=== PATIENT | female | born 1980 | race Caucasian/White ===

== ENCOUNTER 2020-11-05 18:29 | Inpatient (IN) | payer BC ==
[2020-11-05] MEDS ORDERED: Lorazepam 2 MG/ML VIAL ONE (19:03)
[2020-11-05 19:11] LABS: #Eosinphils 0.2 thou/uL (0.0-0.7); #Lymphocytes 2.8 thou/uL (1.20-3.40); #Monocytes 0.4 thou/uL (0.11-0.59); #Neutrophils 5.3 thou/uL (1.40-6.50); %Basophils 0.4 % (0.0-1.0); %Lymphocytes 31.5 % (21.0-51.0); Hemoglobin 13.6 g/dL (12.0-16.0); Mean Corpuscular HGB CONC 33.9 g/dL (32.0-36.0); Mean Corpuscular Hemoglobin 27.7 pg (27.0-31.0); Mean Corpuscular Volume 81.6 fL (78.0-98.0); Mean Platelet Volume 7.9 fL (7.4-10.4); Platelet Count 285 thou/uL (130-400); RBC Distribution Width 11.5 % (11.5-14.5); Red Blood Cell (RBC) Count 4.91 mill/uL (4.20-5.40); White Blood Cell (WBC) Count 8.7 thou/uL (4.8-10.8)
[2020-11-05 19:35] LABS: ALT (SGPT) 31 U/L (8-55); AST (SGOT) 33 U/L (5-34); Albumin 4.3 g/dL (3.5-5.0); Alkaline Phosphatase 88 U/L (40-110); Anion Gap 20 mmol/L (10-20); BUN (Urea Nitrogen) 11 mg/dL (7.0-18.7); Bilirubin, Total 0.4 mg/dL (0.2-1.2); Calc. Creatinine Clearance 0 mL/min (70-130); Carbon Dioxide 20 mmol/L (22-29); Chloride 103 mmol/L (98-107); Globulin 3.9 g/dL (2.4-3.5); Glucose 126 mg/dL (70-105); Protein, Total 8.2 g/dL (6.0-8.3); Sodium 140 mmol/L (136-145)
[2020-11-05 19:37] LABS: Bilirubin Negative (Negative); Blood, Urine Negative (Negative); Clarity Clear (Clear); Glucose, Urine (Dipstick) Normal (Negative); Ketone, Urine 60 mg/dL (Negative); Leukocyte Negative Leu/uL (Negative); Nitrite Negative (Negative); Protein, Urine (Dipstick) 10 mg/dL (Neg-Trace); Specific Gravity, Urine 1.021 (1.002-1.036); Urobilinogen Normal mg/dL (Less than 2)
[2020-11-05 19:45] LABS: Potassium 2.5 mmol/L (3.5-5.1)
[2020-11-05 19:48] LABS: Acetaminophen Less than 6.0 mcg/mL (10.0-30.0); Alcohol Less than 10 mg/dL (Less than 10); CK (CPK) 76 U/L (29-168); Salicylate Less than 8.0 mg/dL (15.0-30.0)
[2020-11-05 19:48] LABS: Amphetamine Not Detected (NotDetected); Barbiturates Screen Not Detected (NotDetected); Benzodiazepine Screen Not Detected (NotDetected); Cocaine Metabolite Screen Not Detected (NotDetected); Medtox Reader # READER 4; Methadone Not Detected (NotDetected); Methamphetamine Not Detected (NotDetected); Opiate Screen Detected (NotDetected); Oxycodone Screen Not Detected (NotDetected); Phencyclidine (PCP) Not Detected (NotDetected); THC/Cannabinoid Screen Not Detected (NotDetected); Tricyclic Screen Not Detected (NotDetected)
[2020-11-05 19:49] LABS: Medtox Control Line Valid? VALID (VALID)
--- NOTE | 2020-11-05 19:49 | RAD ---
PORTABLE CHEST: History: Altered mental status, syncope. FINDINGS: Heart size and mediastinum within normal limits. The lungs are clear of infiltrates. No significant b elfego findings. IMPRESSION: No active intrathoracic disease. POS: OFF
--- NOTE | 2020-11-05 19:54 | CT ---
CT OF BRAIN PERFORMED WITHOUT CONTRAST ENHANCEMENT: History: Patient with altered mental status. Comparison: 05-26-2020, CT angio of the head 05-26-2020, MRI of the brain, 05-27-2020. FINDINGS: The ventricular and cisternal system is within normal limits. There is an area of decreased attenuati on within the left posterior frontal white matter that is new as compared to the previous CT and MR d[facility], although it is fairly well defined and I would tend to favor it may represent more of a chronic change, given the fact that it is not present of the prior study it is difficult to exclude an acute process. There is no hemorrhage or mass effect. Mastoid air cells and visualized sinuses are clear. IMPRESSION: 1. Area of decreased attenuation in the left posterior frontal white matter, new as compared to the [facility] study. I cannot exclude this as an acute or subacute event although this could be older. I would tend to favor it is chronic but the age is indeterminate. Follow up MRI may be the most benefi cial study as previous CT angio is negative. POS: OFF
[2020-11-05] MEDS ORDERED: Potassium Chloride 20 MEQ/100 ML PREMIX BAG ONE (20:01)
[2020-11-05] MEDS ORDERED: Aspirin Chewable 81 MG TAB ONE (20:01)
[2020-11-05] MEDS ORDERED: Potassium Chloride 20 MEQ TAB ONE (20:01)
--- NOTE | 2020-11-05 22:12 | PDOC.HHP ---
Hospitalist HPI - History of Present Illness Altered mental state History of Present Illness: This is a 40-year-old female patient with a history of encephalitis, CVA and Swanson's palsy who presents to the ED on account of altered mental status. Patient was confused at the time of my evaluationmost of the history was taken from her mother and the ED physician signed off. She was apparently in a usual state of health when today while driving from an athletic event of his son started becoming confused. Patient's mother told me that she called her while driving and told her she did not know where she was. Mother asked her to tie puller and eventually she was found. She was brought into the ED for further evaluation. Patient has since had difficulty saying any wordswas unable to say whether she had any pain or any specific symptoms. Mother notes that she has had a previous similar episode about 6 to 8 months ago. She is currently being followed by neurologist Dr. Connors. At presentation her blood pressure was 128/59, pulse 78, respiratory rate 20, temperature 98.5 and saturating 100% on room air. She was confused and not answering questions directly. Mother notes she had fallen from a [employer] building as a child and therefore has been having occasional drop attacks. CBC was generally unremarkable, CMP showed hypokalemia of 2.5 and bicarb of 20. Troponin was 0.01. Sugar was 126. Brain CT scan showed an area of decreased attenuation in the left posterior frontal white matter which is new compared to 4 months ago. Acute or subacute event could not be excluded. Follow-up MRI was recommended. Chest x-ray was negative for any intrathoracic event. She was given potassium, aspirin and Ativan. Hospitalist team consulted for admission Hospitalist ROS - Review of Systems ROS unobtainable: due to mental status Hospitalist History - Past Medical History Other Medical History: Encephalitis, CVA - Past Surgical History Other Surgical History: Orthopedic surgeon on ankle, section - Exam General - other findings: In bed, appears confused not answering questions directly Eye: PERRL, anicteric sclera ENT: normocephalic atraumatic Heart: RRR, no murmur, no gallops Respiratory: CTAB, no wheezes, no rales Gastrointestinal: soft, non-tender, non-distended, normal bowel sounds Extremities: no cyanosis, no clubbing, no edema Neurological - other findings: Stable right facial droop. No focal deficits Psychiatric: A&O x 3, not oriented, flat affect Hospitalist Results - Labs Result Diagrams: 11/06/20 04:10 11/06/20 04:10 Lab results: WBC 8.7 thou/uL (4.8-10.8) 11/05/20 19:02 Hgb 13.6 g/dL (12.0-16.0) 11/05/20 19:02 Hct 40.0 % (36.0-47.0) 11/05/20 19:02 MCV 81.6 fL (78.0-98.0) 11/05/20 19:02 Plt Count 285 thou/uL (130-400) 11/05/20 19:02 Neutrophils % 61.0 % (42.0-75.0) 11/05/20 19:02 Sodium 140 mmol/L (136-145) 11/05/20 19:02 Potassium 2.5 mmol/L (3.5-5.1) L* 11/05/20 19:02 Chloride 103 mmol/L (98-107) 11/05/20 19:02 Carbon Dioxide 20 mmol/L (22-29) L 11/05/20 19:02 BUN 11 mg/dL (7.0-18.7) 11/05/20 19:02 Creatinine 0.76 mg/dL (0.6-1.1) 11/05/20 19:02 Glucose 126 mg/dL (70-105) H 11/05/20 19:02 Calcium 9.0 mg/dL (7.8-10.44) 11/05/20 19:02 Total Bilirubin 0.4 mg/dL (0.2-1.2) 11/05/20 19:02 AST 33 U/L (5-34) 11/05/20 19:02 ALT 31 U/L (8-55) 11/05/20 19:02 Alkaline Phosphatase 88 U/L (40-110) 11/05/20 19:02 Creatine Kinase 76 U/L (29-168) 11/05/20 19:04 Troponin I Less than 0.010 ng/mL (< 0.028) 11/05/20 19:02 Serum Total Protein 8.2 g/dL (6.0-8.3) 11/05/20 19:02 Albumin 4.3 g/dL (3.5-5.0) 11/05/20 19:02 Urine Ketones 60 mg/dL (Negative) A 11/05/20 19:18 Urine Blood Negative (Negative) 11/05/20 19:18 Urine Nitrite Negative (Negative) 11/05/20 19:18 Ur Leukocyte Esterase Negative Joe/uL (Negative) 11/05/20 19:18 Hospitalist H&P A/P - Plan Plan: This is a 40-year-old female patient with a history of enterocolitis and CVA presenting with altered mental status of unclear etiology. Acute encephalopathy Unclear etiologypossible stroke, possible conversion disorder UDS negative, last TSH within normal limits We will check B12 and ammonia Admit to stroke unit and monitor Neuro consult in a.m. Possible subacute/chronic stroke Patient already on aspirin statinwe will continue MRI in a.m Last echocardiogram 5 months ago EF 50 to 55% Normal size of left atrium Consider repeat echo in a.m. Neurochecks Fall precautions. Neuro consulted Hypokalemia Potassium 2.5corrected We will check magnesium monitor BMP VT prophylaxisLovenox CODE STATUSfull code
[2020-11-05] MEDS ORDERED: Potassium Chloride 20 MEQ in Premix Bag 1 BAG IVPB SCH (22:45)
[2020-11-06] MEDS ORDERED: Acetaminophen/Codeine 30-300mg Tablet PO PRN (01:51)
[2020-11-06] MEDS ORDERED: traMADol HCl 50 MG TAB PO PRN (01:51)
[2020-11-06] MEDS ORDERED: Acetaminophen 325 MG TAB ONE ×2 (02:27→11:42)
[2020-11-06] MEDS: Acetaminophen 325 MG TAB PO PRN ×2 (02:34→12:31)
[2020-11-06 04:32] LABS: #Basophils 0.1 thou/uL (0.0-0.2); #Eosinphils 0.1 thou/uL (0.0-0.7); #Lymphocytes 2.4 thou/uL (1.20-3.40); #Monocytes 0.5 thou/uL (0.11-0.59); #Neutrophils 4.7 thou/uL (1.40-6.50); %Basophils 0.7 % (0.0-1.0); %Eosinophils 0.9 % (0.0-10.0); %Lymphocytes 30.6 % (21.0-51.0); %Monocytes 6.3 % (0.0-10.0); %Neutrophils 61.5 % (42.0-75.0); Hemoglobin 11.2 g/dL (12.0-16.0); Mean Corpuscular HGB CONC 33.4 g/dL (32.0-36.0); Mean Corpuscular Hemoglobin 27.5 pg (27.0-31.0); Mean Corpuscular Volume 82.5 fL (78.0-98.0); Platelet Count 237 thou/uL (130-400); RBC Distribution Width 11.4 % (11.5-14.5); Red Blood Cell (RBC) Count 4.06 mill/uL (4.20-5.40); White Blood Cell (WBC) Count 7.7 thou/uL (4.8-10.8)
[2020-11-06 04:54] LABS: Anion Gap 12 mmol/L (10-20); BUN (Urea Nitrogen) 10 mg/dL (7.0-18.7); Calc. Creatinine Clearance 0 mL/min (70-130); Calcium 7.9 mg/dL (7.8-10.44); Carbon Dioxide 24 mmol/L (22-29); Cardiac Risk 2.5 (Less than 4.5); Chloride 106 mmol/L (98-107); Cholesterol 127 mg/dl (< 200 Desired); Glucose 100 mg/dL (70-105); HDL Cholesterol 51 mg/dL (>60 Neg Risk); LDL Cholesterol, Calculated 68 mg/dL; Magnesium 1.9 mg/dL (1.6-2.6); Potassium 3.1 mmol/L (3.5-5.1); Sodium 139 mmol/L (136-145); Triglycerides 42 mg/dL (Less than 150)
[2020-11-06] MEDS ORDERED: FLU VACC QS2020-21(6MOS UP)/PF 60 MCG/0.5 ML SYRINGE IM ONE (06:15)
[2020-11-06] MEDS ORDERED: Ketorolac Tromethamine 30 MG/ML VIAL ONE ×2 (06:59→12:24)
[2020-11-06] MEDS: Ketorolac Tromethamine 30 MG/ML VIAL IVP SCH ×3 (07:41→18:19)
[2020-11-06] MEDS ORDERED: Aspirin Chewable 81 MG TAB ONE (08:45)
[2020-11-06] MEDS: Aspirin 81 mg Enteric Coated Tablet PO SCH (08:50)
[2020-11-06] MEDS ORDERED: Fosphenytoin Sodium 500 mg/10 ml Vial ONE (11:49)
--- NOTE | 2020-11-06 12:11 | PDOC.HOSPP ---
- Subjective Encounter Date: 11/06/20 Subjective: The patient is mental status improved compared to presentation per her mother. She is still have some difficulty speaking. Denies any weakness or numbness. - Objective Vital Signs & Weight: Vital Signs (12 hours) Temp Pulse Resp BP Pulse Ox 11/06/20 05:00 98.3 F 71 17 116/73 98 Weight Weight 182 lb 15.739 oz I&O: 11/05/20 11/06/20 11/07/20 06:59 06:59 06:59 Intake Total 240 Balance 240 Result Diagrams: 11/06/20 04:10 11/06/20 04:10 Hospitalist ROS - Medication Medications: Active Medications Generic Name Dose Route Start Last Admin Trade Name Freq PRN Reason Stop Dose Admin Acetaminophen 650 mg 11/06/20 01:51 11/06/20 02:34 Acetaminophen 325 Mg Tab PO 650 mg Q6H PRN Administration Pain Aspirin 81 mg 11/06/20 09:00 11/06/20 08:50 Aspirin 81 Mg Enteric Coated Tablet PO 81 mg DAILY MIRYAM Administration Ketorolac Tromethamine 15 mg 11/06/20 06:00 11/06/20 07:41 Ketorolac Tromethamine 30 Mg/Ml Vial IVP 11/11/20 06:01 15 mg Q6HR MIRYAM Administration - Exam General Appearance: awake alert ENT: normocephalic atraumatic Neck: supple, no JVD Heart: RRR Respiratory: normal chest expansion, no tachypnea Gastrointestinal: soft Extremities: no cyanosis, no clubbing Hosp A/P (1) Recurrent strokes Code(s): I63.9 - CEREBRAL INFARCTION, UNSPECIFIED Status: Acute (2) MACHINE HEEL BUILDER vasculitis Code(s): I77.6 - ARTERITIS, UNSPECIFIED Status: Acute (3) Seizure disorder Code(s): G40.909 - EPILEPSY, UNSP, NOT INTRACTABLE, WITHOUT STATUS EPILEPTICUS Status: Acute - Plan Patient with recurrent CVA. Prior work-up did not reveal an etiology but vasculitis was in the differential. Continue aspirin and atorvastatin. Check MRI of the brain. Check carotid duplex and echocardiogram. Neurology consultation. Check ANCA screen rheumatic factor.
[2020-11-06 14:50] LABS: SARS-CoV-2 PCR by NAA Not Detected (NotDetected)
--- NOTE | 2020-11-06 16:10 | CON ---
NEUROLOGY CONSULTATION DATE OF CONSULTATION: 11/06/2020 REASON FOR CONSULTATION: Altered mental status. HISTORY OF PRESENT ILLNESS: Ms. Barrios is a 40-year-old female with history significant for encephalitis, CVA, Swanson palsy, presented to the emergency room with altered mental status. History is taken from the patient and also by the mother at the bedside. According to the mother, she was in her usual self until 11/05/2020 when she started becoming confused. The mother called her while driving and she did not know where she was and she was confused, unable to say words right, so mother decided to bring her to the emergency room for further evaluation. The patient is well known to us from previous evaluation. She does have history of epilepsy, and MRI of the brain was abnormal. She was admitted to the hospital on 05/27/2020 and was discharged on 05/30/2020. She was presented with a similar presentation of change in mental status and aphasia. She did undergo stroke workup during that time and the CT of the brain and CTA. CTA showed patent internal carotid artery with no focal stenosis. She head CT, which showed a small infarct in the left parietal, white matter of indeterminate age. She had an echocardiogram which showed ejection fraction of 50% to 55% and no thrombus or PFO. She underwent EEG which showed epileptogenicity in the left parieto-occipital and temporal region. Her MRI of the brain also indicated linear restricted diffusion involving the cortex of the mesial left temporal lobe associated with decreased T2 and FLAIR signal at the basis of edema. Both the tests were consistent with complex partial seizure disorder, so she was started on Keppra. 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 Her condition improved with Keppra and she was discharged home. However, she started having some hallucinations with Keppra including auditory hallucination and suicidal ideation. She was scheduled to see Dr. Bustillos as outpatient. Apparently, the patient stopped Keppra because of the side effects and then she never started a new seizure medication. This admission, she also presented with speech difficulties and altered mental status. REVIEW OF SYSTEMS: Unobtainable due to the patient's mental status. FAMILY History: No history of epilepsy SOCIAL HISTORY: Lives with her mother. Denies smoking, alcohol or illegal drug use. ALLERGIES: Morphine PAST MEDICAL HISTORY: Encephalitis, seizure disorder, possible CVA. PAST SURGICAL HISTORY: Orthopedic surgery on ankle, section. Vital Signs & Weight: Vital Signs (12 hours) Temp Pulse Resp BP Pulse Ox 11/06/20 05:00 98.3 F 71 17 116/73 98 Weight Weight 182 lb 15.739 oz I&O: 11/05/20 11/06/20 11/07/20 06:59 06:59 06:59 Intake Total 240 Balance 240 Active Medications Generic Name Dose Route Start Last Admin Trade Name Frenahed PRN Reason Stop Dose Admin Acetaminophen 650 mg 11/06/20 01:51 11/06/20 02:34 Acetaminophen 325 Mg Tab PO 650 mg Q6H PRN Administration Pain Aspirin 81 mg 11/06/20 09:00 11/06/20 08:50 Aspirin 81 Mg Enteric Coated Tablet PO 81 mg DAILY MIRYAM Administration Ketorolac Tromethamine 15 mg 11/06/20 06:00 11/06/20 07:41 Ketorolac Tromethamine 30 Mg/Ml Vial IVP 11/11/20 06:01 15 mg Q6HR MIRYAM Administration PHYSICAL EXAMINATION: General - confused not answering questions Eye: PERRL, anicteric sclera ENT: normocephalic atraumatic Heart: RRR, no murmur, no gallops Respiratory: CTAB, no wheezes, no rales Gastrointestinal: soft, non-tender, non-distended, normal bowel sounds Extremities: no cyanosis, no clubbing, no edema Neurological - other findings: Stable right facial droop. No focal deficits Psychiatric: A&O x 3, not oriented, flat affect NEUROLOGIC: Mental status, the patient is alert and oriented to herself. She follows commands intermittently. Cranial nerves 2 through 12 intact except 7, upper motor neuron facial palsy, which is chronic. Motor, muscle tone and bulk are normal. Strength, 5/5 bilaterally. Sensory intact. Cerebellar, finger-nose testing intact. Gait deferred due to the patient's safety reason. DATA REVIEWED: I reviewed the labs which were significant for hypokalemia. WBC 8.7 thou/uL (4.8-10.8) 11/05/20 19:02 Hgb 13.6 g/dL (12.0-16.0) 11/05/20 19:02 Hct 40.0 % (36.0-47.0) 11/05/20 19:02 MCV 81.6 fL (78.0-98.0) 11/05/20 19:02 Plt Count 285 thou/uL (130-400) 11/05/20 19:02 Neutrophils % 61.0 % (42.0-75.0) 11/05/20 19:02 Sodium 140 mmol/L (136-145) 11/05/20 19:02 Potassium 2.5 mmol/L (3.5-5.1) L* 11/05/20 19:02 Chloride 103 mmol/L (98-107) 11/05/20 19:02 Carbon Dioxide 20 mmol/L (22-29) L 11/05/20 19:02 BUN 11 mg/dL (7.0-18.7) 11/05/20 19:02 Creatinine 0.76 mg/dL (0.6-1.1) 11/05/20 19:02 Glucose 126 mg/dL (70-105) H 11/05/20 19:02 Calcium 9.0 mg/dL (7.8-10.44) 11/05/20 19:02 Total Bilirubin 0.4 mg/dL (0.2-1.2) 11/05/20 19:02 AST 33 U/L (5-34) 11/05/20 19:02 ALT 31 U/L (8-55) 11/05/20 19:02 Alkaline Phosphatase 88 U/L (40-110) 11/05/20 19:02 Creatine Kinase 76 U/L (29-168) 11/05/20 19:04 Troponin I Less than 0.010 ng/mL (< 0.028) 11/05/20 19:02 Serum Total Protein 8.2 g/dL (6.0-8.3) 11/05/20 19:02 Albumin 4.3 g/dL (3.5-5.0) 11/05/20 19:02 Urine Ketones 60 mg/dL (Negative) A 11/05/20 19:18 Urine Blood Negative (Negative) 11/05/20 19:18 Urine Nitrite Negative (Negative) 11/05/20 19:18 Ur Leukocyte Esterase Negative Joe/uL (Negative) 11/05/20 19:18 ASSESSMENT AND PLAN: (1) Recurrent strokes Code(s): I63.9 - CEREBRAL INFARCTION, UNSPECIFIED Status: Acute (2) 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 Barrios is a 40-year-old female with history significant for Swanson palsy, encephalitis, and seizure disorder, presented with altered mental status and receptive aphasia. This is similar presentation as a previous admission. Both MRI of the brain was positive for seizure focus and an EEG showed partial epilepsy. She was started on Keppra during the last admission, which was discontinued secondary to side effects. We will load her with fosphenytoin 1 gram IV now and then start on 100 mg p.o. t.i.d. The patient and the mother were made aware that she does have epilepsy and she needs to be on seizure medication. Observe seizure precautions. Ativan 2 mg IV for seizure greater than 2 minutes. Neuro checks every 4 hours. PT/OT/Speech. Continue medical management per primary team. Continue aspirin and statin for secondary stroke prevention. Telemetry to rule out arrythmias.Monitor BP and blood glucose. DVT prophylaxis. EEG to rule out underlying cortical irritability and to further adjust the medication. MRI brain followup to assess for acute intracranial process. Consider rheumatology input regarding vasculitis. We will continue to follow. Thank you for the consult. Job ID: [id number] YULIET
[2020-11-06 16:31] VITALS: BMI 28.8
--- NOTE | 2020-11-06 16:40 | MRI ---
EXAM: MRI Brain W WO Con DATE: 11/06/2020 3:45 PM INDICATION: 40-year-old female with history of anxiety, stroke and questionable seizure COMPARISON: CT of the brain without contrast dated November 05, 2020 and an MR the brain with and wit hout contrast dated December 31, 2016. Comparisons are also made with an additional MR the brain dated May 27, 2020. FINDIN cc of MultiHance was utilized for the exam. No area of restricted diffusion is evident. No overt signs acute T2 signal abnormality or region of a bnormal enhancement is demonstrated. Previously on the prior MR examination, there was asymmetric signal abnormalities involving the left mesial temporal lobe that appears less prominent and accentua mago on the current examination. No overt restricted diffusion is noted within this region. No abnormal enhancement is noted within this region. There is a remote subcortical and cortical based in farct involving the left frontal lobe. Mild chronic ischemic change is seen within subcortical white matter of the left frontal lobe. No acute intracranial hemorrhage is evident. No midline shift is noted. No hydrocephalus is evident. There is appropriate flow void seen within the major intracranial vessels. There is mild mucosal thickening within the paranasal sinuses. IMPRESSION: 1. No definite acute intracanal abnormality. 2. Chronic findings as above.
--- NOTE | 2020-11-06 16:53 | PDOC.EEG ---
Neurology EEG Report - Report Report: This EEG was performed using 24 channel [employer] video EEG machine with 24 disc courtney ctrodes. This was an extended 2 hours 6 minutes of inpatient video EEG recording. Digital analysis of the EEG was done for spike and seizure detection which revealed no abnormalities. Background: The posterior background rhythm is not observed. Hyperventilation: Not performed. Photic Stimulation: No significant response. Sleep: No stage change is observed. EEG Diagnosis: Occasional irregular theta activity seen during the reording. Absence of posterior background rhythm. Clinical Interpretation: This EEG is consistent with moderate generalized nonspecific cerebral dysfunction.
--- NOTE | 2020-11-06 18:36 | ULT ---
BILATERAL CAROTID DUPLEX ULTRASOUND: 11/06/20 HISTORY: Stroke symptoms. Real time color Doppler evaluation of the right and left carotid systems was performed. On the right side, peak systolic velocities of the common carotid were 96 cm/s. Internal carotid velocities were 1 06 cm/s. External carotid velocities 93 cm/s. On the left side, peak systolic velocity of the common carotid were 108 cm/s. Internal carotid veloci ties were 92 cm/s. External carotid velocities 82 cm/s. Vertebral flow was antegrade bilaterally. IMPRESSION: No evidence of hemodynamically significant stenosis of either internal carotid artery by NASCET crite deidre. POS: OFF
[2020-11-06] MEDS: Atorvastatin Calcium 40 MG TAB PO SCH (22:05)
[2020-11-07] MEDS: Ketorolac Tromethamine 30 MG/ML VIAL IVP SCH ×2 (01:36→08:34)
[2020-11-07] MEDS: Acetaminophen 325 MG TAB PO PRN ×2 (04:23→10:30)
[2020-11-07] MEDS: Aspirin 81 mg Enteric Coated Tablet PO SCH (08:35)
--- NOTE | 2020-11-07 11:09 | PDOC.HOSPP ---
- Subjective Encounter Date: 11/07/20 Subjective: The patient's symptoms have now resolved. - Objective Vital Signs & Weight: Vital Signs (12 hours) Temp Pulse Resp BP BP Pulse Ox 11/07/20 08:33 98.1 F 85 16 114/61 98 11/07/20 04:15 98.5 F 77 15 110/78 98 11/07/20 01:28 97.6 F 75 12 111/65 98 Weight Weight 178 lb 14.4 oz I&O: 11/06/20 11/07/20 11/08/20 06:59 06:59 06:59 Intake Total 240 1050 Balance 240 1050 Result Diagrams: 11/06/20 04:10 11/06/20 04:10 Hospitalist ROS - Medication Medications: Active Medications Generic Name Dose Route Start Last Admin Trade Name Freq PRN Reason Stop Dose Admin Acetaminophen 650 mg 11/06/20 01:51 11/07/20 10:30 Acetaminophen 325 Mg Tab PO 650 mg Q6H PRN Administration Pain Aspirin 81 mg 11/06/20 09:00 11/07/20 08:35 Aspirin 81 Mg Enteric Coated Tablet PO 81 mg DAILY MIRYAM Administration Atorvastatin Calcium 40 mg 11/06/20 21:00 11/06/20 22:05 Atorvastatin Calcium 40 Mg Tab PO 40 mg HS MIRYAM Administration Phenytoin Sodium 100 mg 11/06/20 15:00 11/07/20 08:35 Phenytoin Sodium Extended 100 Mg Cap PO 100 mg TID MIRYAM Administration - Exam General Appearance: awake alert Neck: supple, no JVD Heart: RRR Respiratory: normal chest expansion, no tachypnea Extremities: no cyanosis, no clubbing Hosp A/P (1) Recurrent strokes Code(s): I63.9 - CEREBRAL INFARCTION, UNSPECIFIED Status: Acute (2) FIRING PIN GAUGER vasculitis Code(s): I77.6 - ARTERITIS, UNSPECIFIED Status: Acute (3) Seizure disorder Code(s): G40.909 - EPILEPSY, UNSP, NOT INTRACTABLE, WITHOUT STATUS EPILEPTICUS Status: Acute - Plan 11/06: Patient with recurrent CVA. Prior work-up did not reveal an etiology but vasculitis was in the differential. Continue aspirin and atorvastatin. Check MRI of the brain. Check carotid duplex and echocardiogram. Neurology consultation. Check ANCA screen rheumatic factor. 11/07: MRI of the brain did not show any acute CVA at this time. Her symptoms could be related to TIA versus seizures. No seizure events captured on EEG at this time. ANCA screen results are pending.
--- NOTE | 2020-11-07 13:54 | PDOC.NEUPN ---
- Subjective Encounter Date: 11/07/20 Subjective: Ms. Barrios altered mental status is resolved and she is back to her baseline. - Objective Vital Signs & Weight: Vital Signs (12 hours) Temp Pulse Pulse Resp BP BP BP 11/07/20 11:33 98.1 F 70 16 11/07/20 10:03 84 105/65 114/61 11/07/20 08:33 98.1 F 85 16 114/61 11/07/20 04:15 98.5 F 77 15 BP Pulse Ox 11/07/20 11:33 125/74 98 11/07/20 10:03 11/07/20 08:33 98 11/07/20 04:15 110/78 98 Weight Weight 178 lb 14.4 oz I&O: 11/06/20 11/07/20 11/08/20 06:59 06:59 06:59 Intake Total 240 1050 Balance 240 1050 Result Diagrams: 11/06/20 04:10 11/06/20 04:10 Radiology Reviewed by me: Yes EKG Reviewed by me: Yes ROS - Review of Systems Constitutional: denies: fever, chills, sweats, weakness, malaise, other Eyes: denies: pain, vision change, conjunctivae inflammation, eyelid inflammatio n, redness, other ENT: denies: ear pain, ear discharge, nose pain, nose discharge, nose congestion, mouth pain, mouth swelling, throat pain, throat swelling, other Respiratory: denies: cough, dry, shortness of breath, hemoptysis, SOB with excertion, pleuritic pain, sputum, wheezing, other Cardiovascular: denies: no pertinent history, AFIB, CAD, CHF, HTN, [place], Syncope, Hyperlipidemia, Mitral valve stenosis, Aortic stenosis, Valve insufficiency, Pulmonary hypertension, Other Gastrointestinal: denies: nausea, vomiting, abdominal pain, diarrhea, constipation, melena, hematochezia, other Genitourinary: denies: dysuria, frequency, incontinence, hematuria, retention, other Musculoskeletal: denies: neck pain, shoulder pain, arm pain, back pain, hand pain, leg pain, foot pain, other Skin: denies: rash, lesions, jose miguel, bruising, other Neurological: denies: weakness, numbness, incoordination, change in speech, confusion, seizures, other - Medication Medications: Active Medications Generic Name Dose Route Start Last Admin Trade Name Steve PRN Reason Stop Dose Admin Acetaminophen 650 mg 11/06/20 01:51 11/07/20 10:30 Acetaminophen 325 Mg Tab PO 650 mg Q6H PRN Administration Pain Aspirin 81 mg 11/06/20 09:00 11/07/20 08:35 Aspirin 81 Mg Enteric Coated Tablet PO 81 mg DAILY MIRYAM Administration Atorvastatin Calcium 40 mg 11/06/20 21:00 11/06/20 22:05 Atorvastatin Calcium 40 Mg Tab PO 40 mg HS MIRYAM Administration Phenytoin Sodium 100 mg 11/06/20 15:00 11/07/20 08:35 Phenytoin Sodium Extended 100 Mg Cap PO 100 mg TID MIRYAM Administration - Exam General Appearance: awake alert Eye: PERRL ENT: normocephalic atraumatic Neck: supple Respiratory: CTAB Cardiovascular: RRR Gastrointestinal: soft Extremities: no cyanosis Skin: normal turgor Neurological: no new deficit, facial droop Neurological - other findings: Swanson's palsy Musculoskeletal: normal tone, normal strength, no muscle wasting PSYCH: normal affect, normal behavior, A&O x 3 Results - Labs Result Diagrams: 11/06/20 04:10 11/06/20 04:10 Lab results: WBC 7.7 thou/uL (4.8-10.8) 11/06/20 04:10 Hgb 11.2 g/dL (12.0-16.0) L 11/06/20 04:10 Hct 33.5 % (36.0-47.0) L 11/06/20 04:10 MCV 82.5 fL (78.0-98.0) 11/06/20 04:10 Plt Count 237 thou/uL (130-400) 11/06/20 04:10 Neutrophils % 61.5 % (42.0-75.0) 11/06/20 04:10 Sodium 139 mmol/L (136-145) 11/06/20 04:10 Potassium 3.1 mmol/L (3.5-5.1) L 11/06/20 04:10 Chloride 106 mmol/L (98-107) 11/06/20 04:10 Carbon Dioxide 24 mmol/L (22-29) 11/06/20 04:10 BUN 10 mg/dL (7.0-18.7) 11/06/20 04:10 Creatinine 0.65 mg/dL (0.6-1.1) 11/06/20 04:10 Glucose 100 mg/dL (70-105) 11/06/20 04:10 Calcium 7.9 mg/dL (7.8-10.44) 11/06/20 04:10 Total Bilirubin 0.4 mg/dL (0.2-1.2) 11/05/20 19:02 AST 33 U/L (5-34) 11/05/20 19:02 ALT 31 U/L (8-55) 11/05/20 19:02 Alkaline Phosphatase 88 U/L (40-110) 11/05/20 19:02 Creatine Kinase 76 U/L (29-168) 11/05/20 19:04 Troponin I Less than 0.010 ng/mL (< 0.028) 11/05/20 19:02 Serum Total Protein 8.2 g/dL (6.0-8.3) 11/05/20 19:02 Albumin 4.3 g/dL (3.5-5.0) 11/05/20 19:02 Urine Ketones 60 mg/dL (Negative) A 11/05/20 19:18 Urine Blood Negative (Negative) 11/05/20 19:18 Urine Nitrite Negative (Negative) 11/05/20 19:18 Ur Leukocyte Esterase Negative Joe/uL (Negative) 11/05/20 19:18 - EKG Interpretation EKG: Normal sinus rhythm - Radiology Interpretation MRI - head Additional Comment: MRI brain did not reveal any acute intracranial pathology PN A/P (1) Seizure disorder Code(s): G40.909 - EPILEPSY, UNSP, NOT INTRACTABLE, WITHOUT STATUS EPILEPTICUS Status: Acute (2) Recurrent strokes Code(s): I63.9 - CEREBRAL INFARCTION, UNSPECIFIED Status: Acute (3) Acute metabolic encephalopathy Code(s): G93.41 - METABOLIC ENCEPHALOPATHY Status: Acute (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 Barrios is a 40-year-old female with history significant for prior stroke, Swanson's palsy, depression presented with altered mental status and receptive aphasia. The patient was diagnosed with epilepsy during her last visit with positive EEG and MRI brain which was suspicious for left mesial temporal lesion. She could not tolerate Keppra and was not taking at the time of the admission. Her presentation was typical for complex partial seizures emanating from the left temporal lobe characterized by altered mental status and speech difficulty. She was loaded with Dilantin in the emergency room and started on a maintenance dose of 300 mg daily. Follow-up EEG did not show any seizure activity since anticonvulsant normalized the EEG. The patient and the mother were made aware to follow-up with Dr. Michel as outpatient if they want to change to a different anticonvulsant instead of Dilantin because of long-term side effects like Lamictal which require slow upward titration. 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 Neurochecks every 4 hours Continue home medications Continue aspirin high intensity statin for secondary stroke prevention. Observe seizure precautions. PT/OT/speech Plan discussed in detail with the patient and also with the mother at bedside.
[2020-11-07] MEDS: Atorvastatin Calcium 40 MG TAB PO SCH (20:21)
[2020-11-07] MEDS ORDERED: traZODone HCl 50 MG TAB PO SCH (21:00)
[2020-11-08] MEDS: Aspirin 81 mg Enteric Coated Tablet PO SCH (08:10)
[2020-11-08] MEDS: Acetaminophen 325 MG TAB PO PRN (08:11)
--- NOTE | 2020-11-08 08:47 | PDOC.DS.DS ---
Provider - Provider Date of Admission: 11/06/20 12:08 Date of Discharge: 11/08/20 Admitting Provider: Franklin Best MD Primary Care Physician: Michelle Cottrell Course - Hospital Course Hospital Course: the patient is a 41-year-old female with past medical history of recurrent CVA, complex partial seizures, and Swanson's palsy who presented to the hospital with change in mental status, generalized weakness, and aphasia. Her symptoms resolved spontaneously within 24 hours of observation. MRI of the brain did not show any acute events and EEG did not show any seizure episodes during the test. Her aspirin dose was increased to 325 mg. Due to her current CVAs at a young age, secondary causes for this like vasculitis has been entertained. ANCA screen and rheumatoid factors were sent and the results were not available at the time of discharge. Recommend outpatient follow-up with neurology and rheumatology. Resuscitation Status: 11/05/20 21:52 Resuscitation Status Routine Resuscitation Status: FULL: Full Resuscitation - Labs Lab Results: 11/06/20 04:10 11/06/20 04:10 - Physical Exam Vitals: Vital Signs (12 hours) Temp Pulse Resp BP BP Pulse Ox 11/08/20 08:00 97.4 F L 76 12 118/79 97 11/08/20 03:44 97.4 F L 88 16 107/67 97 Weight Weight 178 lb 11.2 oz Physical Exam: The patient was seen and examined on the day of discharge. 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 - ARTERITIS, UNSPECIFIED Status: Acute (3) Seizure disorder Code(s): G40.909 - EPILEPSY, UNSP, NOT INTRACTABLE, WITHOUT STATUS EPILEPTICUS Status: Acute Plan - Discharge Medications Prescriptions: Aspirin [Aspirin EC] 325 mg PO DAILY #30 tablet.dr Home Medications: Medication Instructions Recorded Confirmed Type Citalopram [CeleXA] 40 mg PO DAILY 05/27/20 11/06/20 History Atorvastatin Calcium [Lipitor] 40 mg PO DAILY 11/07/20 11/07/20 History Calcium Carbonate [Calcium] 600 mg PO DAILY 11/07/20 11/07/20 History Cetirizine HCl [Zyrtec] 10 mg PO DAILY PRN 11/07/20 11/07/20 History Fludrocortisone Acetate [Florinef] 2 tab PO QID 11/07/20 11/07/20 History LORazepam [Lorazepam] 1 mg PO DAILY PRN 11/07/20 11/07/20 History Multivitamin 1 tab PO DAILY 11/07/20 11/07/20 History diphenhydrAMINE HCl [Benadryl 25 mg PO HS 11/07/20 11/07/20 History Allergy] traZODone HCl [Trazodone HCl] 100 mg PO HS 11/07/20 11/07/20 History Aspirin [Aspirin EC] 325 mg PO DAILY #30 tablet. 11/08/20 Rx Allergies: morphine Allergy (Intermediate, Verified 07/02/20 14:41) Severe Hives Per patient MSG Allergy (Uncoded 07/02/20 14:41) Patient's mother reports allergy to MSG - Follow up Plan Referrals: Michelle Cottrell [employer]CH[employer]IC [Primary Care Provider] - Disposition: HOME Quality - Care Measures CORE MEASURES:: N/A
[2020-11-08 11:21] VITALS: BP 120/75; TEMP 97.6
--- NOTE | 2020-11-08 13:49 | PDOC.NEUPN ---
- Subjective Encounter Date: 11/08/20 Subjective: Mrs. Barrios is doing well and denies any new complaint in the last 24 hours. - Objective Vital Signs & Weight: Vital Signs (12 hours) Temp Pulse Resp BP BP Pulse Ox 11/08/20 11:20 97.6 F 68 12 120/75 100 11/08/20 08:00 97.4 F L 76 12 118/79 97 11/08/20 03:44 97.4 F L 88 16 107/67 97 Weight Weight 178 lb 11.2 oz I&O: 11/07/20 11/08/20 11/09/20 06:59 06:59 06:59 Intake Total 1050 480 Balance 1050 480 Result Diagrams: 11/06/20 04:10 11/06/20 04:10 Radiology Reviewed by me: Yes EKG Reviewed by me: Yes ROS - Review of Systems Constitutional: denies: fever, chills, sweats, weakness, malaise, other Eyes: denies: pain, vision change, conjunctivae inflammation, eyelid inflammation, redness, other ENT: denies: ear pain, ear discharge, nose pain, nose discharge, nose congestion, mouth pain, mouth swelling, throat pain, throat swelling, other Cardiovascular: denies: no pertinent history, AFIB, CAD, CHF, HTN, [place], Syncope, Hyperlipidemia, Mitral valve stenosis, Aortic stenosis, Valve insufficiency, Pulmonary hypertension, Other Gastrointestinal: denies: nausea, vomiting, abdominal pain, diarrhea, constipation, melena, hematochezia, other Genitourinary: denies: dysuria, frequency, incontinence, hematuria, retention, other Musculoskeletal: denies: neck pain, shoulder pain, arm pain, back pain, hand pain, leg pain, foot pain, other Skin: denies: rash, lesions, jose miguel, bruising, other Neurological: denies: weakness, numbness, incoordination, change in speech, confusion, seizures, other - Exam General Appearance: awake alert Eye: PERRL ENT: normocephalic atraumatic Neck: supple Respiratory: CTAB Cardiovascular: RRR Gastrointestinal: soft Extremities: no cyanosis Skin: normal turgor Neurological: no new deficit, facial droop Musculoskeletal: normal tone, normal strength, no muscle wasting PSYCH: normal behavior, A&O x 3 Results - Labs Result Diagrams: 11/06/20 04:10 11/06/20 04:10 Lab results: WBC 7.7 thou/uL (4.8-10.8) 11/06/20 04:10 Hgb 11.2 g/dL (12.0-16.0) L 11/06/20 04:10 Hct 33.5 % (36.0-47.0) L 11/06/20 04:10 MCV 82.5 fL (78.0-98.0) 11/06/20 04:10 Plt Count 237 thou/uL (130-400) 11/06/20 04:10 Neutrophils % 61.5 % (42.0-75.0) 11/06/20 04:10 Sodium 139 mmol/L (136-145) 11/06/20 04:10 Potassium 3.1 mmol/L (3.5-5.1) L 11/06/20 04:10 Chloride 106 mmol/L (98-107) 11/06/20 04:10 Carbon Dioxide 24 mmol/L (22-29) 11/06/20 04:10 BUN 10 mg/dL (7.0-18.7) 11/06/20 04:10 Creatinine 0.65 mg/dL (0.6-1.1) 11/06/20 04:10 Glucose 100 mg/dL (70-105) 11/06/20 04:10 Calcium 7.9 mg/dL (7.8-10.44) 11/06/20 04:10 Total Bilirubin 0.4 mg/dL (0.2-1.2) 11/05/20 19:02 AST 33 U/L (5-34) 11/05/20 19:02 ALT 31 U/L (8-55) 11/05/20 19:02 Alkaline Phosphatase 88 U/L (40-110) 11/05/20 19:02 Creatine Kinase 76 U/L (29-168) 11/05/20 19:04 Troponin I Less than 0.010 ng/mL (< 0.028) 11/05/20 19:02 Serum Total Protein 8.2 g/dL (6.0-8.3) 11/05/20 19:02 Albumin 4.3 g/dL (3.5-5.0) 11/05/20 19:02 Urine Ketones 60 mg/dL (Negative) A 11/05/20 19:18 Urine Blood Negative (Negative) 11/05/20 19:18 Urine Nitrite Negative (Negative) 11/05/20 19:18 Ur Leukocyte Esterase Negative Joe/uL (Negative) 11/05/20 19:18 - EKG Interpretation EKG: Normal sinus rhythm - Radiology Interpretation MRI - head Additional Comment: No acute intracranial pathology PN A/P (1) Seizure disorder Code(s): G40.909 - EPILEPSY, UNSP, NOT INTRACTABLE, WITHOUT STATUS EPILEPTICUS Status: Acute (2) Recurrent strokes Code(s): I63.9 - CEREBRAL INFARCTION, UNSPECIFIED Status: Acute (3) Acute metabolic encephalopathy Code(s): G93.41 - METABOLIC ENCEPHALOPATHY Status: Acute (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 Barrios is a 40-year-old female with history significant for prior stroke, Swanson's palsy, depression presented with altered mental status and receptive aphasia. The patient was diagnosed with epilepsy during her last visit with po sitive EEG and MRI brain which was suspicious for left mesial temporal lesion. She could not tolerate Keppra and was not taking at the time of the admission. Her presentation was typical for complex partial seizures emanating from the left temporal lobe characterized by altered mental status and speech difficulty. Ms. Barrios has been doing well in the last 24 hours and is stable for discharge. She was loaded with Dilantin in the emergency room and started on a maintenance dose of 300 mg daily. Follow-up EEG did not show any seizure activity since anticonvulsant normalized the EEG. The patient and the mother were made aware again today to follow-up with Dr. Jj as outpatient if they want to change to a different anticonvulsant instead of Dilantin because of long-term side effects like Lamictal which require slow upward titration. 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 Neurochecks every 4 hours Continue home medications Continue aspirin high intensity statin for secondary stroke prevention. Observe seizure precautions. PT/OT/speech Plan discussed in detail with the patient and also with the mother at bedside. More than 30 minutes were spent in the coordination of care of the patient
[2020-11-08 15:14] LABS: Myeloperoxidase AutoAbs <9.0 U/mL (0.0-9.0); Proteinase-3 AutoAbs Less than 3.5 U/mL (0.0-3.5)
[2020-11-09 11:17] LABS: Cytoplasmic (C-ANCA) <1:20 titer (Neg:<1:20); Perinuclear (P-ANCA) <1:20 titer (Neg:<1:20)
[2020-11-10 15:49] LABS: ANA Symphony (Qualitative) Negative (Negative); ANA Symphony (Quantitative) 0.2 Ratio (< 0.7 Negative); EliA RAS New Method **** NEW METHOD ****; Rheumatoid Factor IgA Antibody 6.1 IU/mL (<14 Negative); dsDNA IgG Antibody Less than 0.5 IU/mL (<10 Negative)
== END 2020-11-08 13:30 | disposition home or self-care (01) | DRG 102 ==
LOC: ERS 18:29 → ERHOLD 20:54 → OBSVTOIN 11-06 12:08 → 2NO 11-06 16:25
PROVIDERS: ADMIT Student in an Organized Health Care Education/Training Program; ATTEND Internal Medicine
PROC: 4A00X4Z Measurement of Central Nervous Electrical Activity, External Approach (ICD-10-PCS; principal; 2020-11-06)
DX: I67.7 Cerebral arteritis, not elsewhere classified (principal); G93.41 Metabolic encephalopathy; R44.0 Auditory hallucinations; R47.01 Aphasia; F32.9 Major depressive disorder, single episode, unspecified; G40.909 Epilepsy, unspecified, not intractable, without status epilepticus; E87.6 Hypokalemia; F41.9 Anxiety disorder, unspecified; G51.0 Bell's palsy; Z88.6 Allergy status to analgesic agent; Z88.8 Allergy status to other drugs, medicaments and biological substances
CPT/HCPCS: 36415; 51701; 70450; 70553; 71045; 80048; 80053; 80061; 80306; 80307; 81003; 82550; 82607; 83520; 83735; 84484; 85025; 86038; 86225; 86256; 87635; 93005; 93306; 93880; 94760; 95712; 95819; 95957; 96365; 96366; 96375; G0378; J1885; J2060; J3480; Q2009; U0003; U0005

== ENCOUNTER 2023-06-16 15:00 | Observation (INO) | payer BC ==
[~2023-06-16 15:00] MED LIST: Iopamidol-370 76% 500 ML MDV (1 ML CHARGE) ONE
[2023-06-16] MEDS ORDERED: levETIRAcetam 500 MG/5 ML VIAL ONE ×2 (15:54→15:56)
[2023-06-16] MEDS ORDERED: Aspirin 325 MG TAB ONE (15:54)
[2023-06-16 16:13] LABS: #Eosinphils 0.2 thou/uL (0.0-0.7); #Monocytes 0.4 thou/uL (0.11-0.59); #Neutrophils 3.1 thou/uL (1.40-6.50); %Basophils 0.6 % (0.0-1.0); %Eosinophils 3.6 % (0.0-10.0); %Lymphocytes 28.3 % (21.0-51.0); %Monocytes 7.3 % (0.0-10.0); Hematocrit 37.7 % (36.0-47.0); Hemoglobin 13.1 g/dL (12.0-16.0); Mean Corpuscular HGB CONC 34.7 g/dL (32.0-36.0); Mean Corpuscular Hemoglobin 31.2 pg (27.0-31.0); Mean Corpuscular Volume 89.8 fl (78.0-98.0); Platelet Count 207 10x3/uL (130-400); RBC Distribution Width 11.9 % (11.5-14.5); White Blood Cell (WBC) Count 5.2 10x3/uL (4.8-10.8)
[2023-06-16 16:40] LABS: Troponin I Less than 0.010 ng/mL (< 0.028)
[2023-06-16 16:41] LABS: ALT (SGPT) 20 U/L (8-55); AST (SGOT) 20 U/L (5-34); Albumin 3.7 g/dL (3.5-5.0); Alkaline Phosphatase 69 U/L (40-110); Anion Gap 11 mmol/L (10-20); BUN (Urea Nitrogen) 10 mg/dL (7.0-18.7); Bilirubin, Total 0.5 mg/dL (0.2-1.2); Calc. Creatinine Clearance 0 mL/min (70-130); Calcium 8.6 mg/dL (7.8-10.44); Carbon Dioxide 25 mmol/L (22-29); Chloride 107 mmol/L (98-107); Estimated GFR 107; Globulin 2.5 g/dL (2.4-3.5); Glucose 98 mg/dL (70-105); Potassium 3.5 mmol/L (3.5-5.1); Protein, Total 6.2 g/dL (6.0-8.3); Sodium 139 mmol/L (136-145)
[2023-06-16 17:37] LABS: INR-International Normal Ratio 1.1; Prothrombin Time 14.3 sec (12.0-14.7)
[2023-06-16 17:38] LABS: PTT 27.8 sec (22.9-36.1)
[2023-06-16] MEDS ORDERED: hydrALAZINE 20 MG/ML VIAL SLOW IVP PRN (18:47)
[2023-06-16] MEDS ORDERED: Acetaminophen 325 MG TAB PO PRN (18:47)
[2023-06-16] MEDS ORDERED: Ondansetron PF 4 MG/2 ML Vial IVP PRN (18:47)
[2023-06-16] MEDS ORDERED: Ondansetron ODT 4 MG TAB PO PRN (18:47)
[2023-06-16] MEDS ORDERED: Acetaminophen 650 MG Suppository PR PRN (18:47)
[2023-06-16] MEDS ORDERED: Lorazepam 2 MG/ML VIAL SLOW IVP PRN (18:47)
[2023-06-16 21:37] VITALS: BMI 27.0
[2023-06-16] MEDS: Aggrenox 200-25mg CAP PO SCH (23:33)
[2023-06-16] MEDS: Lacosamide 50 mg Tablet PO SCH (23:33)
[2023-06-16] MEDS: Atorvastatin Calcium 40 MG TAB PO SCH (23:33)
[2023-06-17 05:52] LABS: #Eosinphils 0.3 thou/uL (0.0-0.7); #Monocytes 0.5 thou/uL (0.11-0.59); #Neutrophils 3.1 thou/uL (1.40-6.50); %Basophils 0.7 % (0.0-1.0); %Eosinophils 5.4 % (0.0-10.0); %Lymphocytes 29.7 % (21.0-51.0); %Monocytes 8.2 % (0.0-10.0); %Neutrophils 55.6 % (42.0-75.0); Hematocrit 37.6 % (36.0-47.0); Hemoglobin 12.7 g/dL (12.0-16.0); Mean Corpuscular HGB CONC 33.8 g/dL (32.0-36.0); Mean Corpuscular Hemoglobin 30.6 pg (27.0-31.0); Mean Corpuscular Volume 90.6 fl (78.0-98.0); Mean Platelet Volume 9.8 fL (7.4-10.4); Platelet Count 180 10x3/uL (130-400); RBC Distribution Width 11.9 % (11.5-14.5); Red Blood Cell (RBC) Count 4.15 mill/uL (4.20-5.40); White Blood Cell (WBC) Count 5.6 10x3/uL (4.8-10.8)
[2023-06-17 06:18] LABS: Anion Gap 9 mmol/L (10-20); BUN (Urea Nitrogen) 7 mg/dL (7.0-18.7); Calc. Creatinine Clearance 133 mL/min (70-130); Calcium 8.3 mg/dL (7.8-10.44); Carbon Dioxide 24 mmol/L (22-29); Cardiac Risk 2.6 (Less than 4.5); Chloride 109 mmol/L (98-107); Cholesterol 126 mg/dl (< 200 Desired); Estimated GFR 111; Glucose 91 mg/dL (70-105); HDL Cholesterol 48 mg/dL (>60 Neg Risk); LDL Cholesterol, Calculated 70 mg/dL; Potassium 3.4 mmol/L (3.5-5.1); Sodium 139 mmol/L (136-145); Triglycerides 38 mg/dL (Less than 150)
[2023-06-17] MEDS: Lacosamide 50 mg Tablet PO SCH ×2 (08:33→20:16)
[2023-06-17] MEDS: Aggrenox 200-25mg CAP PO SCH ×2 (08:33→20:16)
[2023-06-17] MEDS: Citalopram 20 MG TAB PO SCH (08:34)
[2023-06-17] MEDS ORDERED: Potassium Chloride 20 MEQ TAB PO SCH (10:00)
[2023-06-17] MEDS ORDERED: Phenytoin Extended Release 100 MG CAP PO SCH (15:00)
[2023-06-17] MEDS ORDERED: Melatonin 3 MG TAB PO PRN (19:44)
[2023-06-17] MEDS ORDERED: Lorazepam 1 MG TAB PO SCH (20:00)
[2023-06-17] MEDS: Atorvastatin Calcium 40 MG TAB PO SCH (20:16)
[2023-06-17] MEDS ORDERED: Non-Formulary Item 1 EACH (Trazodone Hcl [Trazodone Hcl] 100 MG Tablet) PO SCH (21:00)
[2023-06-17] MEDS ORDERED: traZODone HCl 50 MG TAB PO SCH (21:00)
[2023-06-18 06:27] LABS: #Eosinphils 0.3 thou/uL (0.0-0.7); #Monocytes 0.5 thou/uL (0.11-0.59); #Neutrophils 2.6 thou/uL (1.40-6.50); %Basophils 0.8 % (0.0-1.0); %Eosinophils 6.3 % (0.0-10.0); %Lymphocytes 33.5 % (21.0-51.0); %Monocytes 8.8 % (0.0-10.0); %Neutrophils 50.2 % (42.0-75.0); Hematocrit 40.2 % (36.0-47.0); Hemoglobin 13.5 g/dL (12.0-16.0); Mean Corpuscular HGB CONC 33.6 g/dL (32.0-36.0); Mean Corpuscular Hemoglobin 30.5 pg (27.0-31.0); Mean Corpuscular Volume 90.7 fl (78.0-98.0); Mean Platelet Volume 9.7 fL (7.4-10.4); Platelet Count 189 10x3/uL (130-400); RBC Distribution Width 11.9 % (11.5-14.5); Red Blood Cell (RBC) Count 4.43 mill/uL (4.20-5.40); White Blood Cell (WBC) Count 5.2 10x3/uL (4.8-10.8)
[2023-06-18 06:50] LABS: Anion Gap 12 mmol/L (10-20); BUN (Urea Nitrogen) 12 mg/dL (7.0-18.7); Calc. Creatinine Clearance 131 mL/min (70-130); Calcium 8.6 mg/dL (7.8-10.44); Carbon Dioxide 24 mmol/L (22-29); Chloride 107 mmol/L (98-107); Estimated GFR 111; Glucose 91 mg/dL (70-105); Magnesium 1.9 mg/dL (1.6-2.6); Potassium 3.8 mmol/L (3.5-5.1); Sodium 139 mmol/L (136-145)
[2023-06-18 07:51] VITALS: BP 115/72; TEMP 97.6
[2023-06-18] MEDS: Lacosamide 50 mg Tablet PO SCH (08:40)
[2023-06-18] MEDS: Aggrenox 200-25mg CAP PO SCH (08:40)
[2023-06-18] MEDS: Citalopram 20 MG TAB PO SCH (08:41)
== END 2023-06-18 12:28 | disposition home or self-care (01) ==
LOC: ERS 15:00 → 2SE 17:23
PROVIDERS: ADMIT Internal Medicine; ATTEND Internal Medicine
DX: R53.1 Weakness (principal); R29.810 Facial weakness; G40.909 Epilepsy, unspecified, not intractable, without status epilepticus; I63.9 Cerebral infarction, unspecified; G51.8 Other disorders of facial nerve; R41.0 Disorientation, unspecified; F41.0 Panic disorder [episodic paroxysmal anxiety]; F32.A Depression, unspecified; F39 Unspecified mood [affective] disorder; I77.6 Arteritis, unspecified; R47.01 Aphasia; Z88.5 Allergy status to narcotic agent; Z88.8 Allergy status to other drugs, medicaments and biological substances; Z79.82 Long term (current) use of aspirin; Z79.899 Other long term (current) drug therapy
CPT/HCPCS: 36415; 70450; 70496; 70498; 70551; 80048; 80053; 80061; 83036; 83735; 84443; 84484; 85025; 85610; 85730; 93005; 94760; 96372; 96374; G0378; J1650; J1953; J2060; Q9967